=== PATIENT | male | born 1985 | race Caucasian/White ===

== ENCOUNTER 2019-03-24 15:23 | Emergency (ER) | payer OTHER ==
[~2019-03-24] VITALS: Ht 182.9 cm; Wt 72.6 kg
[2019-03-24] MEDS ORDERED: CHLORDIAZEPOXID25 MG PO (17:44)
== END 2019-03-24 17:55 | disposition home or self-care (01) ==
LOC: ED 15:23
DX: R56.9 Unspecified convulsions (principal); F10.10 Alcohol abuse, uncomplicated; F17.200 Nicotine dependence, unspecified, uncomplicated
CPT/HCPCS: 70450; 80053; 85025; 96365; 96375; 99284-25; G0480; J1953; J3411; J7030; J7060